=== PATIENT | male | born 1945 | race Caucasian/White ===

== ENCOUNTER → 2022-09-14 | Outpatient (CLI) | payer MEDICARE ==
--- NOTE | 2022-09-15 17:23 | MR ---
EXAMINATION TYPE: MR lumbar spine wo con DATE OF EXAM: 09/14/2022 COMPARISON: None HISTORY: Legs give out and pain in lower extremities x2 months CONTRAST: 0 mL intravenous Gadavist. TECHNIQUE: Multiplanar, multisequence images of the lumbar spine were acquired. FINDINGS: Cord terminates at the L1 level. L5-S1: Broad-based disc bulge is present. This has moderate anterior thecal sac compression. No AP sp inal canal stenosis is present. Facet hypertrophy is present. Severe bilateral foraminal narrowing is present. Endplate changes compatible with Modic type I degenerative changes present. L4-L5: There is a grade 1 spondylolisthesis of L4 anteriorly on L5. Disc uncovering is present has mo derate anterior thecal sac compression. Facet hypertrophy is present. Ligamentum flavum laxity is pre sent with posterior lateral thecal sac compression, greater on the left than the right. Moderate to s evere foraminal narrowing is present, greater on the left. Spinal canal stenosis is present predomina ntly due to ligamentum flavum laxity and facet hypertrophy lateral canal narrowing is present. L3-L4: Minimal grade 1 spondylolisthesis is present with L3 anterior to L4. Severe left and moderate right foraminal narrowing is present. Some mild disc uncovering has mild anterior thecal sac flatteni ng. Facet hypertrophy is present greater on the left. Some posterior lateral thecal sac compression i s present. Some spinal canal narrowing without stenosis appears to be present. Disc space is narrowed . L2-L3: Disc space narrowing is present. No spinal canal stenosis or neural foraminal stenosis is pres ent facet hypertrophy is present. L1-L2: Disc height is preserved. Significant disc bulge is not evident. No spinal canal stenosis or n eural foraminal stenosis is present. T12-L1: No significant disc bulge or disc herniation. No spinal canal stenosis. No foraminal stenos is. Renal cysts are noted. IMPRESSION: 1. Spinal canal stenosis L4-5 due to facet hypertrophy with ligamentum flavum laxity. There is severe posterior lateral thecal sac compression with lateral canal narrowing and some AP spinal canal steno sis anterior to the ligamentum flavum. 2. Grade 1 spondylolisthesis of L4 anterior on L5 and to a lesser degree L3 on L4. 3. Severe foraminal stenosis L5-S1 bilaterally, left severe foraminal stenosis is present L4-5
== END | disposition home or self-care (01) ==
LOC: RADMRIMAIN 14:29
PROVIDERS: ATTEND Family Medicine
DX: M48.061 Spinal stenosis, lumbar region without neurogenic claudication (principal); M47.816 Spondylosis without myelopathy or radiculopathy, lumbar region; M43.16 Spondylolisthesis, lumbar region
CPT/HCPCS: 72148

== ENCOUNTER → 2024-03-02 | Outpatient (CLI) | payer MEDICARE ==
[2024-03-02 13:23] LABS: African American GFR (CKD) >90 (>60 ml/min/1.73 sqM); Blood Urea Nitrogen 20 mg/dL (9-20); Non-African American GFR(CKD) 88 (>60 ml/min/1.73 sqM)
--- NOTE | 2024-03-02 14:09 | CT ---
Head CT with contrast HISTORY: Confusion COMPARISON: 03/04/2017 TECHNIQUE: Multiple axial images are obtained from skull base to vertex finding uneventful administra tion of nonionic IV contrast material. FINDINGS: Ventricles, basal cisterns and sulci are moderately enlarged consistent with moderate age-appropriate atrophy. There is no mass effect or shift of the midline structures. No abnormal density is seen throughout the brain parenchyma and there is no acute intra or extra-axia l hemorrhage. Following contrast administration, there is no pathological enhancement. The posterior fossa and brainstem, fourth ventricle and cerebellar pontine angles appear normal. The intraorbital contents appear normal and symmetric. Visualized paranasal sinuses and mastoid air cells are well aerated. IMPRESSION: No significant abnormality seen with no interval change. [facility], Workstation: [id number] 03/02/2024 2:07 PM
== END | disposition home or self-care (01) ==
LOC: RADCTMAIN 12:27
PROVIDERS: ATTEND Family Medicine
DX: R41.0 Disorientation, unspecified (principal)
CPT/HCPCS: 82565; 84520; 70460; 36415; Q9967

== ENCOUNTER → 2024-07-09 | Outpatient (CLI) | payer MEDICARE ==
[~2024-07-09] MED LIST: REGADENOSON 0.4 MG/5 ML SYRINGE IV PRN
[2024-07-09 09:37] LABS: African American GFR (CKD) >90 (>60 ml/min/1.73 sqM); Blood Urea Nitrogen 22 mg/dL (9-20); Non-African American GFR(CKD) >90 (>60 ml/min/1.73 sqM)
--- NOTE | 2024-07-09 12:53 | CT ---
EXAMINATION TYPE: CT chest w con CT DLP: 449 mGycm, Automated exposure control for dose reduction was used. DATE OF EXAM: 07/09/2024 12:42 PM COMPARISON: Chest radiograph 03/04/2017 CLINICAL INDICATION:Male, 78 years old with history of R55 SYNCOPE R93.89 ABNORMAL FINDINGS ON DX GUMARO GING; PHH, abnormal findings TECHNIQUE: Multiple axial images were obtained through the chest following the administration of 100 cc of Isovue 300. . Coronal and sagittal reformats reviewed. FINDINGS: LUNGS/ PLEURA: No pleural effusion, pneumothorax, or focal consolidation. Minimal dependent bilateral lower lobe subsegmental atelectasis. Scattered punctate calcified granulomas. No suspicious pulmonar y nodule or mass. AIRWAY: Patent and unremarkable.. HEART: Size within normal limits. . No pericardial effusion. Mild coronary artery calcifications pres ent. Pronounced within the LAD. MEDIASTINUM: No gross evidence of adenopathy. VASCULATURE: The aortic root demonstrates aneurysmal dilatation measuring up to 4.4 cm. The ascendin g thoracic aorta demonstrates aneurysmal dilatation measuring up to 4.3 cm. Descending thoracic aorta measures up to 3.1 cm. Mild atherosclerotic calcification of the aortic arch and its branches. MUSCULOSKELETAL: No acute osseous abnormalities SOFT TISSUES/LYMPH NODES: Unremarkable. LOWER NECK: 1.1 cm macrocalcification within the right thyroid lobe.. UPPER ABDOMEN: Moderate size hiatal hernia. IMPRESSION: 1. No acute thoracic process. 2. 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 3. Moderate-sized hiatal hernia. [facility], , 07/09/2024 12:51 PM
--- NOTE | 2024-07-09 13:12 | CA ---
Lexiscan Nuclear Stress Test Report Name: Zafar Purvis Exam Date: 07/09/2024 10:58 Exam Location: [facility] Ht (in): 70 Wt (lb): 185 BSA: 2.02 Ordering Phys: Nelia Cage DO Referring Phys: Mariele Khanna PAC Technologist: RITA DE LA O Age: 78 Gender: M : 1945 Procedure CPT: Indications: R55 SYNCOPE R93.89 ABNORMAL FINDINGS ON DX IMAGING ICD-10 Codes: Patient History: PRIOR SMOKER Medications: GABAPENTIN, PRAMPEXOLE, FUROSEMIDE, POTASSIUM CHLORIDE, CILECOX Meds past 24 hrs: Pretest Chest Pain: STRESS TEST Lexiscan Protocol Exercise Duration (min:sec): 02:[address] Depressions (mm): Angina Score: Bonner Score: Resting HR (bpm): 78 Peak HR (bpm): 96 Resting BP (mmHg): 130 / 86 Peak BP (mmHg): 133 / 66 MPHR: 140 Target HR: 119 % MPHR: 69 METS: 1.0 Total Dose: Peak Dose: Atropine: Double Product: 50246 BP Response: Stress Termination: INFUSION COMPLETE Stress Symptoms: NO SYMPTOMS Stress Summary: ECG ANALYSIS Resting ECG: Stress ECG: CONCLUSIONS RESTING EKG: [Normal sinus rhythm, normal EKG] , Patient recieved IV infusion of Lexiscan 0.4mg and at peak infusion STRESS EKG showed: [No significant ST-T wave changes diagnostic for ischemia by ST segment analysis] ARRYTHMIAS: [No ectopic rhythms or sustained arrythmias] CONCLUSION: 1. Normal hemodynamic and clinical response to Lexiscan infusion. 2. Non-ischemic EKG response to lexiscan infusion Please refer to the nuclear imaging portion of this stress test for complete interpretation of the study. Dr Christiano Means (Electronically Signed) Final Date: 09 July 2024 13:11
--- NOTE | 2024-07-10 19:01 | NM ---
EXAMINATION TYPE: NM stress lexiscan cardiolite DATE OF EXAM: 07/09/2024 COMPARISON: NONE CLINICAL INDICATION: Male, 78 years old with history of R55 SYNCOPE R93.89 ABNORMAL FINDINGS ON DX IM AGING; TECHNIQUE: After the intravenous administration of 9.78 mCi Tc 99m Sestamibi - Cardiolite resting SP ECT images acquired 56 minutes post injection. The patient received 0.4mg Lexiscan, 25 mCi Tc 99m Sestamibi - Stress images obtained 47 minutes post injection FINDINGS: Review of stress and rest SPECT images demonstrates no distinct perfusion abnormality. Gated analysi s shows normal wall motion with an estimated left ventricular ejection fraction of 62 %. TID is calc ulated at 1.09, upper limits of normal. IMPRESSION: No scintigraphic evidence for reversible ischemia. [facility], , 07/10/2024 6:59 PM
== END | disposition home or self-care (01) ==
LOC: RADNMMAIN 08:11
PROVIDERS: ATTEND Family Medicine
DX: I77.812 Thoracoabdominal aortic ectasia (principal); K44.9 Diaphragmatic hernia without obstruction or gangrene; R93.89 Abnormal findings on diagnostic imaging of other specified body structures; R55 Syncope and collapse
CPT/HCPCS: 93017; 82565; 84520; 71260; 78452; A9500; J2785; Q9967

== ENCOUNTER → 2024-09-02 | Outpatient (CLI) | payer MEDICARE ==
[2024-09-02 16:23] LABS: BUN/Creat Ratio 28.62 Ratio (12.00-20.00); Blood Urea Nitrogen 22.9 mg/dL (9.0-27.0); Carbon Dioxide 21.5 mmol/L (21.6-31.8); Chloride 110 mmol/L (96-109); Chol/HDL Ratio 2.07 Ratio; Glucose 95 mg/dL (70-110); LDL Cholesterol,Calculated 53.9 mg/dL (0.0-131.0); Potassium 3.9 mmol/L (3.5-5.5); Sodium 143 mmol/L (135-145); VLDL Calculation 9.16 mg/dL (5.00-40.00)
[2024-09-02 16:24] LABS: ALT 31 U/L (10-49); AST 36 U/L (14-35); Calcium 8.6 mg/dL (8.7-10.3)
[2024-09-02 16:39] LABS: NT-Pro-B-Type Natriuretic Pept 111 pg/mL (0-450)
== END | disposition home or self-care (01) ==
LOC: LABWHC1 12:06
PROVIDERS: ATTEND Internal Medicine Cardiovascular Disease
DX: E78.2 Mixed hyperlipidemia (principal); R60.9 Edema, unspecified
CPT/HCPCS: 36415; 80048; 80061; 83880; 84443; 84450; 84460